=== PATIENT | male | born 1950 | race Caucasian/White ===

== ENCOUNTER 2025-05-10 07:02 | Day surgery (SDC) | payer BC ==
[2025-05-09 10:54] LABS: MEAN PLATELET VOLUME 7.2 FL (7.4-10.4); RED CELL DISTRIBUTION WIDTH 14.2 % (11.5-14.5)
[2025-05-09 11:03] LABS: CREATININE 1.10 MG/DL (0.60-1.10); TOTAL CARBON DIOXIDE 30.1 MMOL/L (24-32); eGFR 65 ML/MIN
[2025-05-09 11:07] LABS: APTT 27 SECONDS (22-32); INR 1.0 INR
[~2025-05-10] VITALS: Ht 175.3 cm; Wt 92.2 kg
[2025-05-10] VITALS (10 sets, daily range): BP systolic 115–146; BP diastolic 67–80; PULSE 62–78; RESP 16; TEMP 97.6; O2SAT 94–97
--- NOTE | 2025-05-10 07:33 | ELECTROCARDIOGRAPH REPORT ---
[facility] Test Date: 2025-05-10 Test Time: 07:31:37 Pat Name: ELYSE ALEJANDRA Department: [facility] O Patient ID: [facility]-[id number] Room: Gender: M Patient Service Associate: STUART : 1950 Requested By: YEMI BEAUCHAMP Order Number: [id number] Reading MD: Dr. MERLY Beauchamp Measurements Intervals [place] Rate: 58 P: 49 MD: 206 QRS: 6 QRSD: 93 T: 49 QT: 415 QTc: 408 Interpretive Statements Sinus rhythm Abnormal R-wave progression, early transition Electronically Signed On 05-10-2025 20:25:[address] MERLY Beauchamp Please click the below link to view image of tracing.
[2025-05-10] MEDS ORDERED: ATOR20TA66 PO (07:47)
[2025-05-10] MEDS ORDERED: ESCI-8 PO (07:47)
[2025-05-10] MEDS ORDERED: CARV-166 PO (07:47)
[2025-05-10] MEDS ORDERED: MULT-1085 PO (07:47)
[2025-05-10] MEDS ORDERED: fentaNYL/PF 50MCG/1 ML 2ML syringe ONE (09:35)
[2025-05-10] MEDS ORDERED: iohexol 350 MG/ML 50ML vial IV ONE (09:35)
[2025-05-10] MEDS ORDERED: verapamil 2.5 mg/ml inj IV ONE (09:35)
[2025-05-10] MEDS ORDERED: heparin 1,000unit/ml 10ml vial 10 ML ONE (09:35)
[2025-05-10] MEDS ORDERED: LIDOcaine 1% (10mg/ml) 2ml vial ONE (09:35)
[2025-05-10] MEDS ORDERED: midazolam 1 mg/ML 2ml injection ONE (09:35)
[2025-05-10] MEDS ORDERED: nitroGLYCERIN 500mcg/5mL D5W 5 ML IV ONE (09:36)
[2025-05-10 10:55] LABS: ISTAT HGB ART 12.9 g/dl (14.0-17.9); ISTAT Hct ART 38 %PCV (42-52); ISTAT O2 SATURATION ARTERIAL 91 % (95-98); ISTAT SOURCE ART
--- NOTE | 2025-05-11 00:24 | CARDIOLOGY REPORT ---
DATE OF SERVICE: 05/10/2025 DICTATING PHYSICIAN: MERLY Jo MD PRIMARY PHYSICIAN: SETH Luevano. 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 His aortic echocardiogram 02/03/2025 showed normal ejection fraction with aortic valve 0.93 cm2 with a peak/mean gradient of 29/17 mmHg. In view of his progressive symptoms, the patient preferred to proceed with a coronary angiography. Risks, benefits, and alternative options discussed and informed consent obtained. PROCEDURE TECHNIQUE: The patient underwent right heart catheterization from right radial approach, 6-Maldivian right radial sheath. Post-procedure access site hemostasis secured with right radial band. The patient underwent a right heart catheterization from right antecubital approach, 6-Maldivian sheath. Post-procedure access site hemostasis was secured with manual compression. The patient tolerated the procedure well. COMPLICATIONS: None. PROCEDURES DONE: * Ultrasound-guided right radial artery visualization and access. * Right heart catheterization. * Left heart catheterization. * LVG. * Coronary cineangiography. * Conscious sedation for 45 minutes. FINDINGS: HEMODYNAMICS: Aortic systolic 115, diastolic 53, mean 79 mmHg. LV systolic 136 mmHg, LVEDP of 19 mmHg with a mean gradient of 10 mmHg across the aortic valve with aortic valve area of 1.33 cm2. LEFT VENTRICULOGRAM: Overall left ventricular systolic function is normal with an LV ejection fraction of 70%. Right atrial mean 2 mmHg, RV 25/6 mmHg. PA 20/5 mmHg. Pulmonary capillary wedge pressure of 10 mmHg. LVEDP of 19 mmHg as mentioned above. CORONARY CINEANGIOGRAPHY: Left main coronary artery is engaged with JL4 catheter from right radial approach. The left main coronary artery is a large caliber vessel arising from the left aortic sinus with mild luminal irregularities. LAD is a medium caliber vessel arising at the bifurcation of the main coronary artery and courses through the anterior interventricular groove, and ends by wrapping around the apex. LAD has areas of 20% narrowing in the proximal and mid portion. Diagonal 1 is small with a diagonal 2 is 2.5-mm caliber with minimal luminal irregularities. Circumflex artery is a medium caliber vessel arising at the bifurcation of the left main coronary artery and a proximal eccentric 50% to 60% narrowing. Otherwise, it continues predominantly as an obtuse marginal branch of 3 mm with mild luminal irregularities. Right coronary artery is a medium caliber vessel arising at the right aortic sinus and coursed through the right AV groove and ends at the posterior crux by dividing into the PDA and a posterolateral branch. RCA and its branches have mild luminal irregularities. IMPRESSION: A 75-year-old male with LV ejection fraction of 65%. LVEDP of 19 mmHg. There is a mean gradient of about 10 mmHg across the aortic valve with aortic valve area of 1.33 cm2. Pulmonary capillary wedge pressure of 10 mmHg. PAP of 20/5 mmHg. Left main normal. LAD with the proximal mid 20% narrowing. Proximal circumflex eccentric 50% to 60% narrowing. Mid RCA with mild luminal irregularities. RECOMMENDATIONS: Recommend continued aggressive coronary risk factor modification, namely low fat, low cholesterol diet, maintaining ideal body weight, keeping LDL less than 70 mg. The patient's aortic stenosis is only mild to moderate. The options of the patient after discussing risks, benefits, alternatives of options, prefers to have a reevaluation within 3 months. MERLY Jo MD TID: [id number] RECEIPT: [id number] NATTY/AYLIN/ANNY cc: MARYCHUY Luevano
[2025-05-11 06:42] LABS: ISTAT HGB MIX 11.6 g/dl (14.0-17.9); ISTAT Hct MIX 34 %PCV (42-52); ISTAT O2 SATURATION MIX VENOUS 56 % (60-80); ISTAT SOURCE VEN
== END 2025-05-10 16:05 | disposition home or self-care (01) ==
LOC: SSTAY O 07:02
PROVIDERS: ATTEND Internal Medicine Cardiovascular Disease
DX: I35.2 Nonrheumatic aortic (valve) stenosis with insufficiency (principal); I25.10 Atherosclerotic heart disease of native coronary artery without angina pectoris; I10 Essential (primary) hypertension; E78.5 Hyperlipidemia, unspecified; G47.30 Sleep apnea, unspecified; Z79.899 Other long term (current) drug therapy; Z90.49 Acquired absence of other specified parts of digestive tract; Z82.49 Family history of ischemic heart disease and other diseases of the circulatory system
CPT/HCPCS: 36415; 80048; 82803; 85014; 85025; 85610; 85730; 93005; 93460; 99152; 99153; J1644; J2003; J2250; J3010; J3490; J7030; Q0163; Q9967; 76937; A6258; A6402; C1725; C1769; C1894